=== PATIENT | female | born 1940 | race Two or more races ===

== ENCOUNTER 2023-09-26 17:49 | Inpatient (IN) | payer OTHER ==
[~2023-09-26] VITALS: Ht 157.5 cm; Wt 49.9 kg
[2023-09-26] MEDS ORDERED: AMIODARONE HCL 200 MG TABLET PO SCH (18:25)
[2023-09-26] MEDS ORDERED: ATORVASTATIN CALCIUM 40 MG TABLET PO SCH (18:25)
[2023-09-26] MEDS ORDERED: METOPROLOL TARTRATE 25 MG TABLET PO SCH (18:26)
[2023-09-26] MEDS ORDERED: PANTOPRAZOLE SODIUM 40 MG TABLET.DR PO SCH (18:27)
[2023-09-26] MEDS ORDERED: ALPRAzolam 0.25 MG TABLET PO PRN (18:30)
[2023-09-26] MEDS ORDERED: FUROsemide 20 MG/2 ML VIAL IV SCH (18:30)
[2023-09-26] MEDS ORDERED: FAMOTIDINE/PF 20 MG/2 ML VIAL IV SCH (18:30)
[2023-09-26] MEDS ORDERED: 0.9 % SODIUM CHLORIDE 1,000 ML IV SCH (18:30)
[2023-09-26] MEDS ORDERED: hydrALAZINE HCL 20 MG VIAL IV PRN (18:30)
[2023-09-26 19:59] LABS: INR 1.06; PARTIAL THROMBOPLASTIN TIME 23.8 SECONDS (22.0-34.0); PROTHROMBIN TIME 11.1 SECONDS (9.0-11.5)
[2023-09-26 20:04] LABS: MEAN CELL VOLUME 92.3 fL (80.00-100.00); MEAN CORPUSCULAR HGB CONC 34.3 g/dl (32.0-36.0); PLATELET COUNT 358 K/uL (150-450); RED BLOOD COUNT 2.32 M/uL (4.00-6.00); RED CELL DISTRIBUTION WIDTH 14.3 % (11.5-14.5)
[2023-09-26 20:07] LABS: MEAN CORPUSCULAR HEMOGLOBIN 31.4 pg (27.00-32.0)
[2023-09-26 20:10] LABS: ALBUMIN 3.7 gm/dL (3.4-5.0); BILIRUBIN TOTAL 0.22 mg/dL (0.3-1.2); CALCIUM 9.2 mg/dL (8.5-10.1); CREATININE SERUM 0.9 mg/dL (0.55-1.02); GFR 59.94; GLOBULINA 3.2 G/DL (2.4-3.5); HEMATOCRIT 21.4 % (36.0-45.00); POTASSIUM 3.96 mEq/L (3.5-5.1); TOTAL PROTEIN 6.9 gm/dL (6.4-8.2)
[2023-09-26 20:12] LABS: HEMOGLOBIN 7.3 g/dL (12.0-15.00)
[2023-09-26] MEDS ORDERED: GABAPENTIN 300 MG CAPSULE PO SCH (21:00)
[2023-09-27] MEDS ORDERED: APIXABAN 2.5 MG TABLET PO SCH (09:00)
[2023-09-27] MEDS ORDERED: CLOPIDOGREL BISULFATE 75 MG TABLET PO SCH (09:00)
[2023-09-27] MEDS ORDERED: ACETAMINOPHEN 500 MG GEL..CAP PO PRN (17:24)
[2023-09-27] MEDS ORDERED: ACETAMINOPHEN 500 MG GEL..CAP PO STA (17:24)
[2023-09-27] MEDS ORDERED: ATORVASTATIN CA10 MG (18:59)
[2023-09-27] MEDS ORDERED: CLOPIDOGREL BIS75 MG (19:00)
[2023-09-27] MEDS ORDERED: MECLIZINE HCL25 MG (19:00)
[2023-09-27] MEDS ORDERED: AMIODARONE HCL200 MG (19:00)
[2023-09-27] MEDS ORDERED: ELIQUIS2.5 MG (19:00)
[2023-09-27] MEDS ORDERED: BREO ELLIPTA I1 EACH (19:00)
[2023-09-27] MEDS ORDERED: FAMOTIDINE20 MG (19:00)
[2023-09-27] MEDS ORDERED: FUROSEMIDE20 MG (19:00)
[2023-09-27] MEDS ORDERED: MAXFE CAPLET1 EAC1 (19:01)
[2023-09-27] MEDS ORDERED: LOPRESSOR25 MG (19:01)
[2023-09-27] MEDS ORDERED: LOSARTAN POTASS50 MG (19:01)
[2023-09-27] MEDS ORDERED: CYCLOBENZAPRINE10 MG (19:01)
[2023-09-27] MEDS ORDERED: SUCRALFATE1 GM/10 ML (19:01)
[2023-09-27 19:04] LABS: PH,URINE 6.5 (5.0-8.0); URINE APPEARANCE Clear; URINE BILIRRUBIN Negative (NEGATIVE); URINE BLOOD Negative; URINE COLOR Yellow; URINE GLUCOSE Negative (NEGATIVE); URINE LEUKOCYTE Trace; URINE NITRATE Negative; URINE PROTEIN Negative (NEGATIVE); URINE UROBILINOGEN 0.2 E.U./dl
[2023-09-27 19:08] LABS: URINE BACTERIA 35.2 uL (0.0-1933); URINE EPITHELIAL CELLS 1.6 uL (0.0-38.8); URINE RBC 3.8 uL (0.0-20.8); URINE WBC 8.9 uL (0.0-23.2)
[2023-09-27] MEDS ORDERED: NOREPINEPHRINE BITARTRATE 8 MG in DEXTROSE 5 % IN WATER 250 ML IV SCH (20:45)
[2023-09-28 01:03] LABS: HEMATOCRIT 31.5 % (36.0-45.00); HEMOGLOBIN 10.7 g/dL (12.0-15.00); MEAN CELL VOLUME 89.6 fL (80.00-100.00); MEAN CORPUSCULAR HEMOGLOBIN 30.4 pg (27.00-32.0); MEAN CORPUSCULAR HGB CONC 33.9 g/dl (32.0-36.0); PLATELET COUNT 335 K/uL (150-450); RED BLOOD COUNT 3.52 M/uL (4.00-6.00)
[2023-09-28 12:38] LABS: ob POSITIVE (NEGATIVE)
[2023-09-28] MEDS ORDERED: SOD FERRIC GLUC COMPLX/SUCROSE 125 MG in 0.9 % SODIUM CHLORIDE 100 ML IV SCH (16:40)
[2023-09-29 06:31] LABS: HEMATOCRIT 31.2 % (36.0-45.00); HEMOGLOBIN 10.7 g/dL (12.0-15.00); MEAN CORPUSCULAR HEMOGLOBIN 30.4 pg (27.00-32.0); MEAN CORPUSCULAR HGB CONC 34.1 g/dl (32.0-36.0); PLATELET COUNT 363 K/uL (150-450); RED BLOOD COUNT 3.51 M/uL (4.00-6.00); RED CELL DISTRIBUTION WIDTH 14.6 % (11.5-14.5)
[2023-09-29 07:17] LABS: ALBUMIN 3.2 gm/dL (3.4-5.0); BILIRUBIN TOTAL 0.35 mg/dL (0.3-1.2); CALCIUM 8.7 mg/dL (8.5-10.1); CREATININE SERUM 0.7 mg/dL (0.55-1.02); GFR 80.11; GLOBULINA 3.1 G/DL (2.4-3.5); MAGNESIUM 1.9 mg/dL (1.8-2.4); POTASSIUM 3.71 mEq/L (3.5-5.1); TOTAL PROTEIN 6.3 gm/dL (6.4-8.2)
[2023-09-29 11:31] LABS: PH,URINE 6.5 (5.0-8.0); URINE APPEARANCE Clear; URINE BILIRRUBIN Negative (NEGATIVE); URINE BLOOD Negative; URINE COLOR Yellow; URINE GLUCOSE Negative (NEGATIVE); URINE LEUKOCYTE Trace; URINE NITRATE Negative; URINE PROTEIN Trace (NEGATIVE); URINE UROBILINOGEN 0.2 E.U./dl
[2023-09-29 11:35] LABS: URINE BACTERIA 17.6 uL (0.0-1933); URINE RBC 4.5 uL (0.0-20.8); URINE WBC 16.6 uL (0.0-23.2)
[2023-09-29 11:39] LABS: PLATELET ESTIMATE NORMAL (NORMAL)
[2023-09-29 14:26] LABS: PLATELET ESTIMATE NORMAL (NORMAL)
[2023-09-29 18:11] LABS: URINE APPEARANCE Clear; URINE BILIRRUBIN Negative (NEGATIVE); URINE BLOOD Negative; URINE COLOR Yellow; URINE GLUCOSE Negative (NEGATIVE); URINE LEUKOCYTE Trace; URINE NITRATE Negative; URINE PROTEIN Negative (NEGATIVE); URINE UROBILINOGEN 0.2 E.U./dl
[2023-09-29 18:14] LABS: URINE BACTERIA 20.1 uL (0.0-1933); URINE EPITHELIAL CELLS 2.3 uL (0.0-38.8); URINE RBC 3.1 uL (0.0-20.8); URINE WBC 5.1 uL (0.0-23.2)
[2023-09-29] MEDS ORDERED: FAMOTIDINE/PF 20 MG in 0.9 % SODIUM CHLORIDE 8 ML IV PUSH SCH (21:00)
[2023-09-30 07:03] LABS: ALBUMIN 3.3 gm/dL (3.4-5.0); BILIRUBIN TOTAL 0.35 mg/dL (0.3-1.2); CALCIUM 9.1 mg/dL (8.5-10.1); CREATININE SERUM 0.81 mg/dL (0.55-1.02); GFR 67.69; GLOBULINA 3.2 G/DL (2.4-3.5); MAGNESIUM 1.9 mg/dL (1.8-2.4); POTASSIUM 3.94 mEq/L (3.5-5.1); TOTAL PROTEIN 6.5 gm/dL (6.4-8.2)
[2023-09-30 07:04] LABS: C-REACTIVE PROTEIN 0.61 MG/DL (0.00-0.29)
[2023-09-30 08:12] LABS: HEMATOCRIT 33.4 % (36.0-45.00); HEMOGLOBIN 11.3 g/dL (12.0-15.00); MEAN CELL VOLUME 91.7 fL (80.00-100.00); MEAN CORPUSCULAR HGB CONC 33.8 g/dl (32.0-36.0); PLATELET COUNT 353 K/uL (150-450); RED BLOOD COUNT 3.65 M/uL (4.00-6.00); RED CELL DISTRIBUTION WIDTH 14.4 % (11.5-14.5)
[2023-09-30] MEDS ORDERED: FAMOtidine 20 MG TABLET PO SCH (09:00)
[2023-09-30 10:26] LABS: PROCALCITONIN 0.09 ng/ml (0.020-0.080)
[2023-09-30] MEDS ORDERED: LACTULOSE 20 G/30 ML BLIST.PACK PO ONE ×2 (11:15→13:45)
[2023-09-30] MEDS ORDERED: MAGNESIUM HYDROXIDE 30 ML BLIST.PACK PO ONE ×2 (11:15→13:45)
[2023-09-30] MEDS ORDERED: MINERAL OIL 30 ML BLIST.PACK PO ONE ×2 (11:15→13:45)
[2023-09-30 11:45] LABS: CORTISOL 9.66 ug/dl
[2023-10-01] MEDS ORDERED: 0.9 % SODIUM CHLORIDE 10 ML VIAL IJ ONE (12:03)
[2023-10-01] MEDS ORDERED: MIDAZOLAM HCL 2 MG/2 ML VIAL IV ONE (12:30)
[2023-10-02] MEDS ORDERED: FAMOTIDINE/PF 20 MG in 0.9 % SODIUM CHLORIDE 8 ML IV PUSH SCH (09:00)
[2023-10-03 04:52] LABS: HEMATOCRIT 29.9 % (36.0-45.00); HEMOGLOBIN 10.2 g/dL (12.0-15.00); MEAN CELL VOLUME 89.7 fL (80.00-100.00); MEAN CORPUSCULAR HEMOGLOBIN 30.7 pg (27.00-32.0); MEAN CORPUSCULAR HGB CONC 34.2 g/dl (32.0-36.0); PLATELET COUNT 326 K/uL (150-450); RED BLOOD COUNT 3.33 M/uL (4.00-6.00); RED CELL DISTRIBUTION WIDTH 14.5 % (11.5-14.5)
[2023-10-03 05:21] LABS: ALBUMIN 3.3 gm/dL (3.4-5.0); BILIRUBIN TOTAL 0.35 mg/dL (0.3-1.2); CALCIUM 8.9 mg/dL (8.5-10.1); CREATININE SERUM 0.7 mg/dL (0.55-1.02); GFR 80.11; GLOBULINA 3.1 G/DL (2.4-3.5); MAGNESIUM 2.1 mg/dL (1.8-2.4); PHOSPHOROUS 2.7 mg/dL (2.5-4.9); POTASSIUM 3.67 mEq/L (3.5-5.1); TOTAL PROTEIN 6.4 gm/dL (6.4-8.2)
[2023-10-03] MEDS ORDERED: METOPROLOL TARTRATE 25 MG TABLET PO PRN (12:04)
[2023-10-04] MEDS ORDERED: SODIUM CHLORIDE 0.45 % 1,000 ML IV SCH (00:15)
[2023-10-04] MEDS ORDERED: NIFEDIPINE 30 MG TAB.SA.OSM PO SCH (00:30)
[2023-10-04] MEDS ORDERED: METOPROLOL TARTRATE 25 MG TABLET PO PRN (06:51)
[2023-10-04 08:34] LABS: HEMATOCRIT 31.3 % (36.0-45.00); HEMOGLOBIN 10.8 g/dL (12.0-15.00); MEAN CELL VOLUME 89.9 fL (80.00-100.00); MEAN CORPUSCULAR HGB CONC 34.4 g/dl (32.0-36.0); PLATELET COUNT 336 K/uL (150-450); RED BLOOD COUNT 3.48 M/uL (4.00-6.00); RED CELL DISTRIBUTION WIDTH 14.5 % (11.5-14.5)
[2023-10-05] MEDS ORDERED: PEG3350/SOD SULF,BICARB,CL/KCL 4,000 ML GALLON PO ONE ×2 (17:27→19:00)
[2023-10-05] MEDS ORDERED: ACETAMINOPHEN 500 MG GEL..CAP PO PRN (19:30)
[2023-10-06] MEDS ORDERED: NA PHOS,M-B/NA PHOS,DI-BA 1 BOTTLE ENEMA RECTAL ONE (06:00)
[2023-10-06] MEDS ORDERED: MIDAZOLAM HCL 2 MG/2 ML VIAL IV STA (11:22)
[2023-10-06] MEDS ORDERED: fentaNYL CITRATE 50 MCG/ML AMPUL IV STA (11:22)
[2023-10-07] MEDS ORDERED: ELIQUIS2.5 MG PO (10:23)
[2023-10-07] MEDS ORDERED: CLOPIDOGREL BIS75 MG PO (10:23)
[2023-10-07] MEDS ORDERED: GABAPENTIN300 MG PO (10:24)
[2023-10-07] MEDS ORDERED: LIPITOR40 M1 PO (10:24)
[2023-10-07] MEDS ORDERED: PANTOPRAZOLE SO40 MG PO (10:25)
[2023-10-07] MEDS ORDERED: NIFEDIPINE ER30 MG PO (10:27)
== END 2023-10-07 11:48 | disposition home or self-care (01) | DRG 812 ==
LOC: MEDI 17:49
PROVIDERS: Internal Medicine; Internal Medicine Hematology & Oncology; Internal Medicine Infectious Disease; ADMIT Internal Medicine; ATTEND Internal Medicine
PROC: 4A12X4Z Monitoring of Cardiac Electrical Activity, External Approach (ICD-10-PCS; 2023-09-26)
PROC: 30233N1 Transfusion of Nonautologous Red Blood Cells into Peripheral Vein, Percutaneous Approach (ICD-10-PCS; 2023-09-27)
PROC: 0DJ08ZZ Inspection of Upper Intestinal Tract, Via Natural or Artificial Opening Endoscopic (ICD-10-PCS; principal; 2023-10-01)
PROC: B24BYZZ Ultrasonography of Heart with Aorta using Other Contrast (ICD-10-PCS; 2023-10-03)
PROC: 0DJD8ZZ Inspection of Lower Intestinal Tract, Via Natural or Artificial Opening Endoscopic (ICD-10-PCS; 2023-10-06)
DX: D64.9 Anemia, unspecified (principal); N39.0 Urinary tract infection, site not specified; K92.2 Gastrointestinal hemorrhage, unspecified; I25.10 Atherosclerotic heart disease of native coronary artery without angina pectoris; N18.9 Chronic kidney disease, unspecified; I10 Essential (primary) hypertension
CPT/HCPCS: 240

== ENCOUNTER 2024-07-19 14:40 | Inpatient (IN) | payer OTHER ==
[~2024-07-19] VITALS: Ht 157.5 cm; Wt 66.2 kg
[~2024-07-19 14:40] MED LIST: AMIODARONE HCL200 MG; ATORVASTATIN CA10 MG; BREO ELLIPTA I1 EACH; CLOPIDOGREL BIS75 MG; CLOPIDOGREL BIS75 MG PO; CYCLOBENZAPRINE10 MG; ELIQUIS2.5 MG; ELIQUIS2.5 MG PO; FAMOTIDINE20 MG; FUROSEMIDE20 MG; GABAPENTIN300 MG PO; IRON 100 PLUS1 EACH PO; LIPITOR40 M1 PO; LOPRESSOR25 MG; LOSARTAN POTASS50 MG; MAXFE CAPLET1 EAC1; MAXFE CAPLET1 EAC1 PO; MECLIZINE HCL25 MG; NIFEDIPINE ER30 MG PO; PANTOPRAZOLE SO40 MG PO; SUCRALFATE1 GM/10 ML
--- NOTE | 2024-07-19 15:18 | NUR ---
SE RECIBE PTE ALERTA Y ORIENTADA X3 EN AMBULANCIA EN COMPANIA DE PARAMEDICOS. LA MISMA REFIERE HEMOGLOBINA EN 6.7 EN LABORATORIO REALIZADOS HOY EN LA MANANA. SE MIDEN S/V Y SE UBICA.
[2024-07-19] MEDS ORDERED: 0.9 % SODIUM CHLORIDE 500 ML IV ONE (15:45)
--- NOTE | 2024-07-19 16:15 | NUR ---
MR LUIS ORIENTA PTE SOBRE TX MEDICO EL CUAL REFIERE ENTENDER.SE LE EXTRAEN MUESTRAS BAJO MEDIDAS ASEPTICAS.SE CANALIZA Y SE COLOCAN FLUIDOS DE MANTENIMIENTO.SE NOTIFICA PLACA PENDIENTE.
[2024-07-19 16:53] LABS: MEAN CELL VOLUME 93.9 fL (80.00-100.00); MEAN CORPUSCULAR HGB CONC 32.8 g/dl (32.0-36.0); PLATELET COUNT 369 K/uL (150-450); RED BLOOD COUNT 2.47 M/uL (4.00-6.00)
[2024-07-19 16:57] LABS: HEMATOCRIT 23.2 % (36.0-45.00); MEAN CORPUSCULAR HEMOGLOBIN 30.7 pg (27.00-32.0); RED CELL DISTRIBUTION WIDTH 18.6 % (11.5-14.5)
[2024-07-19 16:58] LABS: HEMOGLOBIN 7.6 g/dL (12.0-15.00)
[2024-07-19 17:05] LABS: PH,URINE 7.5 (5.0-8.0); URINE APPEARANCE Clear; URINE BILIRRUBIN Negative (NEGATIVE); URINE BLOOD Negative; URINE COLOR Yellow; URINE GLUCOSE Negative (NEGATIVE); URINE KETONE Negative (NEGATIVE); URINE LEUKOCYTE Trace; URINE NITRATE Negative; URINE PROTEIN Negative (NEGATIVE); URINE UROBILINOGEN 0.2 E.U./dl
[2024-07-19 17:09] LABS: URINE BACTERIA 78.2 uL (0.0-1933); URINE EPITHELIAL CELLS 0.9 uL (0.0-38.8); URINE RBC 5.5 uL (0.0-20.8); URINE WBC 6.7 uL (0.0-23.2)
[2024-07-19 17:10] LABS: URINE CAST 0.29 uL (0.0-1.40)
[2024-07-19 17:16] LABS: INR 1.03; PARTIAL THROMBOPLASTIN TIME 20.2 SECONDS (22.0-34.0); PROTHROMBIN TIME 11.2 SECONDS (9.0-11.5)
[2024-07-19 17:17] LABS: BILIRUBIN TOTAL 0.21 mg/dL (0.3-1.2); CALCIUM 9.2 mg/dL (8.5-10.1); CREATININE SERUM 1.04 mg/dL (0.55-1.02); GFR 50.61; POTASSIUM 4.56 mEq/L (3.5-5.1)
[2024-07-19] MEDS ORDERED: 0.9 % SODIUM CHLORIDE 1,000 ML IV SCH (20:15)
[2024-07-19] MEDS ORDERED: PANTOPRAZOLE SODIUM 40 MG/VIAL VIAL IV SCH (20:17)
[2024-07-19] MEDS ORDERED: FUROsemide 20 MG/2 ML VIAL IV SCH (20:30)
[2024-07-19] MEDS ORDERED: ACETAMINOPHEN 500 MG GEL..CAP PO PRN (20:30)
[2024-07-20 04:55] VITALS: BP 130/57; O2SAT 98
[2024-07-20] MEDS ORDERED: AMIODARONE HCL 200 MG TABLET PO SCH (09:00)
[2024-07-20] MEDS ORDERED: LOSARTAN POTASSIUM 50 MG TABLET PO SCH (09:00)
[2024-07-20] MEDS ORDERED: ATORVASTATIN CALCIUM 40 MG TABLET PO SCH (09:00)
[2024-07-20 09:45] VITALS: BP 154/66; O2SAT 100
[2024-07-20 17:13] VITALS: BP 145/66; O2SAT 100
[2024-07-20 20:18] LABS: HEMOGLOBIN 10.6 g/dL (12.0-15.00); MEAN CORPUSCULAR HEMOGLOBIN 30.8 pg (27.00-32.0); MEAN CORPUSCULAR HGB CONC 34.2 g/dl (32.0-36.0); PLATELET COUNT 353 K/uL (150-450); RED BLOOD COUNT 3.45 M/uL (4.00-6.00); RED CELL DISTRIBUTION WIDTH 17.5 % (11.5-14.5)
[2024-07-21 01:20] VITALS: BP 150/90; O2SAT 100
[2024-07-21 09:00] VITALS: BP 136/67; O2SAT 99
[2024-07-21 11:24] LABS: ob POSITIVE (NEGATIVE)
== END 2024-07-21 17:28 | disposition home or self-care (01) | DRG 812 ==
LOC: ER 14:40 → MEDJ 21:28
PROVIDERS: General Practice; ADMIT Internal Medicine; ATTEND Internal Medicine
PROC: 30233N1 Transfusion of Nonautologous Red Blood Cells into Peripheral Vein, Percutaneous Approach (ICD-10-PCS; principal; 2024-07-20)
DX: D64.9 Anemia, unspecified (principal); I25.10 Atherosclerotic heart disease of native coronary artery without angina pectoris; I11.9 Hypertensive heart disease without heart failure; E78.5 Hyperlipidemia, unspecified